=== PATIENT | male | born 1930 ===

== ENCOUNTER 2017-01-20 11:03 | Day surgery (SDC) | payer MEDICARE, BC ==
[~2017-01-20] VITALS: Ht 177.8 cm; Wt 78.0 kg
[2017-01-20] MEDS ORDERED: LASIX 40MG TABL40 MG PO (12:15)
[2017-01-20] MEDS ORDERED: BETAPACE 80MG80 MG PO (12:15)
[2017-01-20] MEDS ORDERED: ASPIRIN 32325 MG/TAB PO (12:18)
[2017-01-20] MEDS ORDERED: KLOR-CON 88 ME1 PO (12:18)
[2017-01-20] MEDS ORDERED: NITROSTAT0.4 MG/TAB SL (12:19)
[2017-01-20] MEDS ORDERED: SYNTHROID0.088 MG/T PO (12:19)
[2017-01-20] MEDS ORDERED: AMBIEN 10MG10 MG PO (12:20)
[2017-01-20] MEDS ORDERED: MACRODANTIN100 PO (12:21)
[2017-01-20] MEDS ORDERED: COSOPT 2%-0.5%10 ML OU (12:22)
[2017-01-20] MEDS ORDERED: XALATAN EYE DROPS OD (12:23)
[2017-01-20] MEDS ORDERED: PRESERVISION1 SGL PO (12:24)
[2017-01-20 12:28] VITALS: BP 171/85; PULSE 59; TEMP 97.6
[2017-01-20 13:05] LABS: CREATININE, serum 0.89 mg/dL (0.66-1.25); POTASSIUM 4.3 mmol/L (3.4-5.0)
[2017-01-20 14:40] VITALS: BP 161/69; PULSE 59
[2017-01-20 14:55] VITALS: BP 128/105; PULSE 59
[2017-01-20 15:10] VITALS: BP 143/70; PULSE 60
[2017-01-20 15:25] VITALS: BP 154/81; PULSE 59
[2017-01-20 15:40] VITALS: BP 176/75; PULSE 59; TEMP 99.2
== END 2017-01-20 16:20 | disposition home or self-care (01) ==
LOC: SDCO 11:03
PROVIDERS: Nurse Anesthetist, Certified Registered
DX: N31.2 Flaccid neuropathic bladder, not elsewhere classified (principal); R33.9 Retention of urine, unspecified; I48.91 Unspecified atrial fibrillation; N40.1 Benign prostatic hyperplasia with lower urinary tract symptoms; I25.10 Atherosclerotic heart disease of native coronary artery without angina pectoris; I11.0 Hypertensive heart disease with heart failure; I50.9 Heart failure, unspecified; M19.90 Unspecified osteoarthritis, unspecified site; L57.0 Actinic keratosis; E03.9 Hypothyroidism, unspecified; Z95.0 Presence of cardiac pacemaker; Z95.1 Presence of aortocoronary bypass graft; Z90.79 Acquired absence of other genital organ(s); Z87.891 Personal history of nicotine dependence
CPT/HCPCS: C1769; J0690; J1100; J2405; J2704; J3010; J7120